=== PATIENT | female | born 1960 | race Caucasian/White ===

== ENCOUNTER → 2016-07-02 | Outpatient (CLI) | payer BC ==
[~2016-07-02] MED LIST: ADVIN50/60 INH; ALBUAER INH; PRLSR20 PO
--- NOTE | 2016-07-02 12:12 | DIAGNOSTIC IMAGING REPORT ---
CHEST 2 VIEWS ROUTINE [facility]IST[id number]PARISON: Chest 09/16/2015. FINDINGS: The lungs are clear. Cardiac silhouette is normal in size. No pleural effusions. No pneumothorax. IMPRESSION: No acute process. Electronically signed by: Matt Escobar M.D. 07/02/2016 12:10 PM Dictated Date/Time: 07/02/2016 12:08 PM
== END | disposition home or self-care (01) ==
LOC: C.RAD1850 11:44
PROVIDERS: ATTEND Internal Medicine
DX: Z00.00 Encounter for general adult medical examination without abnormal findings (principal)

== ENCOUNTER → 2018-01-30 | Outpatient (CLI) | payer BC ==
[2018-01-30 14:05] LABS: BASO % 0.2 %; BASO ABS # 0.02 K/uL (0-0.2); EOS % 2.1 %; EOS ABS # 0.17 K/uL (0-0.5); HEMATOCRIT 43.7 % (37-47); HEMOGLOBIN 14.5 g/dL (12.0-16.0); IG# 0.03 K/uL (0.00-0.02); LYMPH % 26.5 %; LYMPH ABS # 2.12 K/uL (1.2-3.4); MEAN CORPUSCULAR HEMOGLOBIN 30.9 pg (25-34); MEAN CORPUSCULAR HGB CONC 33.2 g/dl (32-36); MEAN PLATELET VOLUME 9.1 fL (7.4-10.4); MONO % 9.2 %; MONO ABS # 0.74 K/uL (0.11-0.59); NEUT % 61.6 %; NEUT ABS # 4.93 K/uL (1.4-6.5); PLATELET COUNT 365 K/uL (130-400); RED CELL DISTRIBUTION WIDTH CV 12.3 % (11.5-14.5); RED CELL DISTRIBUTION WIDTH SD 41.4 fL (36.4-46.3); WHITE BLOOD COUNT 8.01 K/uL (4.8-10.8)
[2018-01-30 14:33] LABS: BLOOD UREA NITROGEN 18 mg/dl (7-18); CALCIUM 9.7 mg/dl (8.5-10.1); CARBON DIOXIDE 27 mmol/L (21-32); CREATININE 0.61 mg/dl (0.60-1.20); GLUCOSE 80 mg/dl (70-99); POTASSIUM 3.7 mmol/L (3.5-5.1); SODIUM 134 mmol/L (136-145)
== END | disposition home or self-care (01) ==
LOC: C.LAB1850 12:09
PROVIDERS: ATTEND Physician Assistant
DX: R53.83 Other fatigue (principal)

== ENCOUNTER 2019-04-04 16:49 | Inpatient (IN) ==
[2019-04-04] MEDS ORDERED: ONDANSETRON INJ 2 MG/ML 2 ML VIAL IV STA (17:08)
[2019-04-04] MEDS: HYDROmorphone INJ 0.5 MG/0.5 ML SYR IV PRN ×2 (17:30→20:08)
[2019-04-04 17:35] LABS: Basophils # (auto) 0.04 K/uL (0-0.2); Basophils % (auto) 0.8 %; Eosinophils # (auto) 0.19 K/uL (0-0.5); Hematocrit (blood only) 41.5 % (37-47); Hemoglobin 13.6 g/dL (12.0-16.0); Immature Granulocytes # (auto) 0.02 K/uL (0.00-0.02); Immature Granulocytes % (auto) 0.4 %; Lymphocytes # (auto) 1.45 K/uL (1.2-3.4); Lymphocytes % (auto) 30.2 %; Mean Corpuscular Hemoglobin 30.6 pg (25-34); Mean Corpuscular Hgb Conc 32.8 g/dL (32-36); Mean Corpuscular Volume 93.3 fL (80-100); Mean Platelet Volume 9.5 fL (7.4-10.4); Monocytes # (auto) 0.54 K/uL (0.11-0.59); Monocytes % (auto) 11.3 %; Neutrophils # (auto) 2.56 K/uL (1.4-6.5); Neutrophils % (auto) 53.3 %; Platelet Count 262 K/uL (130-400); RDW Coefficient of Variation 13.6 % (11.5-14.5); RDW Standard Deviation 46.4 fL (36.4-46.3); Red Blood Count 4.45 M/uL (4.2-5.4)
[2019-04-04 18:01] LABS: Alanine Aminotransferase 346 U/L (12-78); Albumin Globulin Ratio 1.1 (0.9-2); Albumin Level 3.5 gm/dl (3.4-5.0); Alkaline Phosphatase 149 U/L (45-117); Aspartate Aminotransferase 156 U/L (15-37); BUN Creatinine Ratio 17.1 (10-20); Blood Urea Nitrogen 12 mg/dl (7-18); Carbon Dioxide 29 mmol/L (21-32); Chloride 102 mmol/L (98-107); Est GFR (Non-African American) 96.6; Globulin 3.2 gm/dl (2.5-4.0); Glucose 106 mg/dl (70-99); Lipase 152 U/L (73-393); Potassium 3.3 mmol/L (3.5-5.1); Sodium 137 mmol/L (136-145); Total Protein 6.7 gm/dl (6.4-8.2)
[2019-04-04] MEDS ORDERED: IOVERSOL 100ml IV PRN (18:08)
--- NOTE | 2019-04-04 18:23 | CT Scan Report ---
CT abd pelvis oral and IV con CLINICAL HISTORY: 58 years-old Female presenting with upper abd pain, elevated LFTs, quick prep. TECHNIQUE: Multidetector CT of the abdomen and pelvis was performed after the administration of oral and intravenous contrast. IV contrast: 94 mL of Optiray 320. One or more dose lowering techniques wer e used consistent with the principles of ALARA (as low as reasonably achievable), including automatic exposure control, mA or kV adjustment to individual patient size, and/or use of iterative reconstruc tion. COMPARISON: None. CT DOSE (mGy.cm): The estimated cumulative dose is 254.65 mGy.cm. FINDINGS: Mental [employer] Professional topogram: Unremarkable. Lung bases: Normal heart size. No pericardial or pleural effusion. Minimal dependent changes likely a telectasis. Liver: Normal morphology. Well-defined hypodense lesions likely hepatic cysts. Patent hepatic vascula ture. Biliary: No intrahepatic or extrahepatic biliary ductal dilatation. Normal gallbladder. Pancreas: Normal. Spleen: Normal. Adrenal glands: Normal. Kidneys and ureters: Normal. No hydronephrosis. Bladder: The configuration of the bladder suggests pelvic ligamentous laxity. Bladder otherwise olga l. Pelvic organs: Multiple degenerated fibroids as well as viable enhancing fibroids noted including a s ubmucosal Bible fibroid in the endometrial cavity. Ovaries normal. Bowel: Moderate stool burden throughout normal caliber colon, which is predominantly left-sided. The appendix is now well visualized. No bowel obstruction. Wall thickening of the gastric antrum and [place] pyloric region to a mild degree. No small bowel wall thickening is appreciated. Peritoneal cavity: Trace free fluid in the pelvis. No free intraperitoneal gas. Lymph nodes: No enlarged lymph nodes in the abdomen or pelvis. Vasculature: Aorta and IVC patent and normal in caliber. Abdominal wall: Normal. Musculoskeletal: Normal. IMPRESSION: 1. Possible wall thickening of the gastric antrum and periportal or region could represent gastritis . 2. No other evidence of acute intra-abdominal pathology allowing for nonvisualization of the appendi x. 3. Stool burden could suggest constipation. 4. Fibroid uterus including an enhancing submucosal fibroid. Electronically signed by: Shay Lombardi M.D. 04/04/2019 6:22 PM
[2019-04-04 19:02] LABS: Appearance Urine Clear (Clear); Blood Urine Negative (Negative); Color Urine Dark Yellow; Glucose Urine UA Negative (Negative); Ketones Urine Negative (Negative); Leukocyte Esterase Urine Negative (Negative); Nitrite Urine Negative (Negative); Protein Urine Negative (Negative); Specific Gravity Urine > 1.045 (1.000-1.030); Urobilinogen Urine Negative (Negative); pH Urine 7.5 (4.5-7.5)
[2019-04-04 19:05] LABS: Bilirubin Urine 2+ (Negative)
[2019-04-04 19:06] LABS: Ictotest Urine Positive (Negative)
[2019-04-04] MEDS ORDERED: FAMOTIDINE 20MG/5ML IV PUSH IV STA (20:20)
[2019-04-04 21:11] LABS: Hepatitis B Surface Antigen Neg (Neg)
[2019-04-04] MEDS ORDERED: POTASSIUM CHLORIDE 20 MEQ TABCR PO STA (21:14)
[2019-04-04 21:39] LABS: Hepatitis C IgG 13Yrs+Old_Rflx Neg (Neg)
--- NOTE | 2019-04-04 22:38 | History & Physical Report ---
Date of Service April 04, 2019 Assessment & Plan (1) Abdominal pain: (2) Transaminitis: Please refer to Dr. Beltran's addendum for assessment and plan. History of Present Illness Chief Complaint: Abdominal pain Primary Care Provider: Nabeel Gilmore MD 58-year-old female who presents to the ED with abdominal pain. Patient has been having ongoing GI issues for the past several months. She reports initially she had symptoms of bloating and gas. She also has had progressive weight loss. Over the summer, patient underwent EGD and colonoscopy that were unremarkable. 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 She was seen in the GI clinic today for complaints of constipation and light-colored stools. Patient was instructed to do a bowel cleanse with MiraLAX and Dulcolax. Labs were also obtained that demonstrated a transaminitis. Per outpatient GI note, it is suspected that this is from Xifaxan use. Patient reports that after she started the clients today, she developed left lower quadrant abdominal pain. She reports she has had minimal bowel movement since doing a cleanse. She has had nausea but denies any vomiting. No fevers or chills. Denies chest pain or shortness of breath. No lightheadedness, dizziness, diaphoresis, syncopal events. She denies urinary symptoms. Of note, patient has been seeing a clinical auditor to help her gain some weight. She was started on supplements about 1-1/2 months ago however stopped them about 2 weeks ago due to difficulty swallowing the pills. She is unsure of what all the supplements were in the list is at home. In the ED, labs demonstrate a transaminitis. CT ABD/pelvis is showing signs of gastritis and constipation. Patient is hemodynamically stable. She was given IV famotidine, IV Dilaudid, IV Zofran. Allergies Allergy/AdvReac Type Severity Reaction Status Date / Time levofloxacin [From Levaquin] Allergy Unknown Unknown Verified 04/04/19 18:07 Penicillins Allergy Unknown Unknown Verified 04/04/19 18:07 Home Medications Home Medications Medication Instructions Recorded Confirmed Type albuterol sulfate HFA 90 2 puffs INH .Q4-6HRS PRN 02/02/19 04/04/19 History mcg/actuation aerosol inhaler omeprazole 20 mg tablet,delayed 20 mg PO QAM 02/02/19 04/04/19 History release zafirlukast 20 mg tablet 20 mg PO Q12H #180 tab 03/13/19 04/04/19 Rx fluticasone propionate-salmeterol 2 puffs INH BID #36 gm 03/20/19 04/04/19 Rx 115 mcg-21 mcg/actuation HFA inhaler lactobacillus combination no.4 1 cell PO DAILY 04/04/19 04/04/19 History [Probiotic] rifaximin [Xifaxan] 550 mg PO TID 04/04/19 04/04/19 History Past Med/Surg History Medical History IBS (irritable bowel syndrome) (Chronic) Small intestinal bacterial overgrowth (Chronic) GERD (gastroesophageal reflux disease) (Chronic) Asthma, moderate persistent (Chronic) Surgical History History of tonsillectomy (Chronic) Family History Father Colorectal cancer Social History Preferred Language: Welsh Communication Ability: Effective Manager Secondary Required: No Beliefs That Will Affect Care: None Current Living Situation: Spouse Other Information That Helps Us Care for You: No Feels Safe at Home: Yes Safety Concerns: Feels Safe At This Time Smoking Status: Never smoker Hx Alcohol Use: No Hx Substance Use: No Review of Systems Review of Systems: ROS per HPI, all other systems reviewed and negative Physical Exam Constitutional: + thin; no acute distress Vitals as noted Eyes: + scleral abnormality (icteric sclerae) and PERRL; no conjunctival abnormality ENMT: external ear and nose normal, oropharynx normal Respiratory: normal respiratory effort, lungs clear to auscultation Cardiovascular: Rate/Rhythm: regular rate and regular rhythm Vessels: normal peripheral pulses Extremities: no edema Gastrointestinal (Abdomen): Inspection/Auscultation: normal bowel sounds P ercussion/Palpation: + abdomen tender (Left lower quadrant) and abdomen soft; no hepatosplenomegaly Musculoskeletal: no cyanosis or clubbing, extremities motor strength 5/5 Skin: no rashes, warm and dry Neurologic: PERRL, EOMI, accommodation nl, no face palsy, no dysarthria Psychiatric: A+Ox3, euthymic affect Results & Data Vital Signs (Past 12 Hours) Vital Signs Temp Pulse Pulse Resp BP BP Pulse Ox 04/04/19 20:01 77 15 04/04/19 20:00 75 15 139/80 95 04/04/19 19:31 63 14 04/04/19 19:30 65 18 126/75 04/04/19 19:00 63 15 125/76 04/04/19 18:52 58 L 14 123/78 04/04/19 18:31 69 17 97 04/04/19 18:30 66 18 132/74 98 04/04/19 18:17 63 19 136/73 99 04/04/19 18:16 68 27 H 04/04/19 17:37 65 22 131/71 95 04/04/19 17:35 131/71 04/04/19 17:08 95 04/04/19 16:55 36.6 C 64 16 105/70 99 Laboratory Results Short CBC 04/04/19 Range/Units 17:27 WBC 4.80 (4.8-10.8) K/uL Hgb 13.6 (12.0-16.0) g/dL Hct 41.5 (37-47) % Plt Count 262 (130-400) K/uL BMP 04/04/19 17:27 Sodium 137 Potassium 3.3 L Chloride 102 Carbon Dioxide 29 BUN 12 Creatinine 0.69 Glucose 106 H Calcium 9.0 Liver Function 04/04/19 Range/Units 17:27 Total Bilirubin 5.0 H (0.2-1) mg/dl AST 156 H (15-37) U/L ALT 346 H (12-78) U/L Alkaline Phosphatase 149 H (45-117) U/L Albumin 3.5 (3.4-5.0) gm/dl Urine 04/04/19 Range/Units 13:55 Urine Color Dark Yellow Urine Appearance Clear (Clear) Urine pH 7.5 (4.5-7.5) Ur Specific [place] > 1.045 H (1.000-1.030) Urine Protein Negative (Negative) Urine Glucose (UA) Negative (Negative) Diagnostic Findings CT ABD/PELVIS IMPRESSION: 1. Possible wall thickening of the gastric antrum and periportal or region could represent gastritis. 2. No other evidence of acute intra-abdominal pathology allowing for nonvisualization of the appendix. 3. Stool burden could suggest constipation. 4. Fibroid uterus including an enhancing submucosal fibroid. Supervising Physician Co-Signing Physician Notes IM ATTENDING : Patient seen and examined. History obtained from patient and records. Preceding documentation by SAMMIE Mcmahan reviewed. FINAL ASSESSMENT AND PLAN as follows : Abdominal discomfort, abnormal LFTs Hypokalemia secondary to bowel cleansing regimen bronchial asthma, stable GMF Follow LFTs GI consult RE abnormal LFTs (ER provider already in touch with Dr. Garcia who recommends MRCP). Replace potassium DVT prophylaxis. SCDs Full code
--- NOTE | 2019-04-04 23:08 | Emergency Department Note ---
Entered by Gavi Gudino acting as a scribe for Neil Reaves MD ED Provider Note CHIEF COMPLAINT: Abdominal pain HISTORY OF PRESENT ILLNESS: The patient is a 58 year old female presenting to the Emergency Department complaining of constant abdominal pain starting 1 week ago. The patient reports that she has lower abdominal pain. She states that this pain radiates up to her chest. She currently rates this pain 8/10. She explains that she is itchy all over. She notes that she began to experience jesus-whitish colored stool starting earlier today. She adds that she has been experiencing stomach issues since October 2018. The patient reports that her PCP believes that she may have SIBO so she has been taking Xifaxan for the past 1.5 weeks. She states that she thinks Zifaxan has worsened her stomach problems. She explains that since October 2018 she has had a colonoscopy, endoscopy and CT scan all of which have been negative. She notes that earlier today she had blood work that showed her liver enzymes were elevated which is why she came into the ED today. She adds that she has been taking Miralax for her abdominal problems that has not helped. The patient denies alcohol use. Pt denies LOC, headache, fevers, chills, diaphoresis, visual changes, neck pain, urinary symptoms, numbness, weakness, lymphadenopathy or other complaints. REVIEW OF SYSTEMS: See HPI for pertinent positives and negatives. A total of ten systems were reviewed and were otherwise negative. PMHx/PSHx: Colonoscopy, Endoscopy. SOCIAL HISTORY: Patient lives at home. Never smoker. PHYSICAL EXAM: GENERAL: Awake, alert, uncomfortable-appearing, in moderate distress HENT: Normocephalic, atraumatic. Oropharynx unremarkable. EYES: PERRL. Normal conjunctiva. Sclera mildly icteric. NECK: Inspection normal. Non-tender. Supple. No nuchal rigidity. FROM. No masses. RESPIRATORY: Clear to auscultation. No wheezes. No rales. Normal respiratory effort. CARDIAC: Normal rate. Normal rhythm. No murmurs. No rubs. Extremities warm and well perfused. Pulses equal. No JVD. GI: LUQ tenderness. Soft, non-distended. No rebound or guarding. No masses. RECTAL: Deferred. MUSCULOSKELETAL: Atraumatic. Chest examination reveals no tenderness. The back is symmetrical on inspection without obvious abnormality. There is no CVA tenderness to palpation. No joint edema. LOWER EXTREMITIES: Calves are equal size bilaterally and non-tender. No edema. No discoloration. NEURO: Normal sensorium. No sensory or motor deficits noted. SKIN: Mild jaundice. No rash. EMERGENCY DEPARTMENT COURSE: 1704: Past medical records reviewed. The patient was evaluated in room B12B, and a complete history and physical examination were performed. 1999: I reevaluated the patient at this time who reports that she is in more pain. I will order her more pain medication. 2002: I discussed the patients case with Dr. Mead [facility]. He recommends to admit the patient, do an MRCP, GI consult and hepatitis panel. 2019: I reevaluated the patient at this time. 2049: I discussed the patient's case with Dr. Ruby Low hospitalist. He will evaluate her for further management. MEDICAL DECISION MAKING: Triage Nursing notes reviewed and agree them. Additional history obtained from family. The patient's history was concerning for abdominal pain. Differential diagnosis: Etiologies such as appendicitis, diverticulitis, PUD, biliary pathology, UTI, pancreatitis, obstruction, mesenteric ischemia, aortic pathology, infections, inflammatory bowel disease, renal colic, as well as others were entertained. Physical examination findings: As above. ER treatment provided: IV Dilaudid x2 IV Zofran IV Pepcid On reassessment the patient felt better. Diagnostics interpreted by me: ECG did not reveal any evidence of ischemia. The labs revealed an unremarkable CBC. Minimal hypokalemia and chemistry panel. The patient has an elevated AST, ALT, alkaline phosphatase, and bilirubin. Lipase is normal. Imaging studies: CT scan of the abdomen and pelvis revealed a mild gastritis. No obstruction or perforation. No abnormal liver/gallbladder/pancreas imaging. Consultation: A consultation was placed with the hospital medicine director on-call, Dr. Mead. The case was discussed and reviewed. He recommended a hepatitis screening as well as an MRCP. Given the patient's discomfort and requiring IV pain control, a consultation was placed with the hospitalist service. The case was discussed and diagnostics were reviewed. The patient was evaluated in the ER for further treatment. IMPRESSION: LUQ abdominal pain, Gastritis, Elevated LFTs, Jaundice PLAN: Being Evaluated by Hospitalist The scribe's documentation has been prepared under my direction and personally reviewed by me in its entirety. I confirm that the note above accurately reflects all work, treatment, procedures, and medical decision making performed by me. Impression & Plan Abdominal pain, LUQ, Gastritis, Elevated LFTs, Jaundice Past Med/Surg History Medical History IBS (irritable bowel syndrome) (Chronic) Small intestinal bacterial overgrowth (Chronic) GERD (gastroesophageal reflux disease) (Chronic) Asthma, moderate persistent (Chronic) Surgical History History of tonsillectomy (Chronic) Family History Father Colorectal cancer Social History Preferred Language: [place] Citizen Feels Safe at Home: Yes Smoking Status: Never smoker Hx Alcohol Use: No Results & Data Vital Signs Vital Signs - 24 hr 04/04/19 16:55 04/04/19 17:08 04/04/19 17:35 Temperature 36.6 C Temperature Source Oral Sepsis Recent Fever Within 48 Hours No Sepsis New/Unexplained Change in Mental Status No Sepsis Action Taken by Nursing No Action Required Pulse Rate 64 Pulse Rate [Apical] Pulse Rate from SpO2 Sensor Respiratory Rate 16 Respiratory Effort / Characteristics Non-Labored Spontaneous Respiratory Depth Normal Blood Pressure 105/70 131/71 Blood Pressure [Right Arm] Blood Pressure Mean 81 91 Blood Pressure Mean [Right Arm] Blood Pressure Position Sitting Pulse Oximetry 99 95 Oxygen Delivery Method Room Air Room Air 04/04/19 17:37 04/04/19 18:16 04/04/19 18:17 Temperature Temperature Source Sepsis Recent Fever Within 48 Hours Sepsis New/Unexplained Change in Mental Status Sepsis Action Taken by Nursing Pulse Rate 68 63 Pulse Rate [Apical] 65 Pulse Rate from SpO2 Sensor 63 Respiratory Rate 22 27 H 19 Respiratory Effort / Characteristics Respiratory Depth Blood Pressure 136/73 Blood Pressure [Right Arm] 131/71 Blood Pressure Mean 94 Blood Pressure Mean [Right Arm] 91 Blood Pressure Position Pulse Oximetry 95 99 Oxygen Delivery Method Room Air 04/04/19 18:30 04/04/19 18:31 04/04/19 18:52 Temperature Temperature Source Sepsis Recent Fever Within 48 Hours Sepsis New/Unexplained Change in Mental Status Sepsis Action Taken by Nursing Pulse Rate 66 69 58 L Pulse Rate [Apical] Pulse Rate from SpO2 Sensor 65 68 Respiratory Rate 18 17 14 Respiratory Effort / Characteristics Respiratory Depth Blood Pressure 132/74 123/78 Blood Pressure [Right Arm] Blood Pressure Mean 93 93 Blood Pressure Mean [Right Arm] Blood Pressure Position Pulse Oximetry 98 97 Oxygen Delivery Method 04/04/19 19:00 04/04/19 19:30 04/04/19 19:31 Temperature Temperature Source Sepsis Recent Fever Within 48 Hours Sepsis New/Unexplained Change in Mental Status Sepsis Action Taken by Nursing Pulse Rate 63 65 63 Pulse Rate [Apical] Pulse Rate from SpO2 Sensor Respiratory Rate 15 18 14 Respiratory Effort / Characteristics Respiratory Depth Blood Pressure 125/76 126/75 Blood Pressure [Right Arm] Blood Pressure Mean 92 92 Blood Pressure Mean [Right Arm] Blood Pressure Position Pulse Oximetry Oxygen Delivery Method 04/04/19 20:00 04/04/19 20:01 04/04/19 20:30 Temperature Temperature Source Sepsis Recent Fever Within 48 Hours Sepsis New/Unexplained Change in Mental Status Sepsis Action Taken by Nursing Pulse Rate 75 77 71 Pulse Rate [Apical] Pulse Rate from SpO2 Sensor Respiratory Rate 15 15 17 Respiratory Effort / Characteristics Respiratory Depth Blood Pressure 139/80 141/76 H Blood Pressure [Right Arm] Blood Pressure Mean 99 97 Blood Pressure Mean [Right Arm] Blood Pressure Position Pulse Oximetry 95 Oxygen Delivery Method Room Air 04/04/19 21:00 04/04/19 21:30 04/04/19 22:03 Temperature Temperature Source Sepsis Recent Fever Within 48 Hours Sepsis New/Unexplained Change in Mental Status Sepsis Action Taken by Nursing Pulse Rate 65 64 63 Pulse Rate [Apical] Pulse Rate from SpO2 Sensor Respiratory Rate 14 13 15 Respiratory Effort / Characteristics Respiratory Depth Blood Pressure 140/82 150/85 H 137/71 Blood Pressure [Right Arm] Blood Pressure Mean 101 106 93 Blood Pressure Mean [Right Arm] Blood Pressure Position Pulse Oximetry Oxygen Delivery Method 04/04/19 22:04 04/04/19 22:30 Temperature Temperature Source Sepsis Recent Fever Within 48 Hours Sepsis New/Unexplained Change in Mental Status Sepsis Action Taken by Nursing Pulse Rate 61 61 Pulse Rate [Apical] Pulse Rate from SpO2 Sensor Respiratory Rate 17 17 Respiratory Effort / Characteristics Respiratory Depth Blood Pressure 134/77 Blood Pressure [Right Arm] Blood Pressure Mean 96 Blood Pressure Mean [Right Arm] Blood Pressure Position Pulse Oximetry 95 Oxygen Delivery Method Room Air Home Medications Current Medication List: was personally reviewed by wa Laboratory Data Attestation: I reviewed the patient's lab results. Result diagrams: 04/04/19 17:27 04/04/19 17:27 Lab Results 04/04/19 04/04/19 04/04/19 Range/Units 13:55 17:27 17:27 WBC 4.80 (4.8-10.8) K/uL RBC 4.45 (4.2-5.4) M/uL Hgb 13.6 (12.0-16.0) g/dL Hct 41.5 (37-47) % MCV 93.3 (80-100) fL MCH 30.6 (25-34) pg MCHC 32.8 (32-36) g/dL RDW Std Deviation 46.4 H (36.4-46.3) fL RDW Coeff of Ayan 13.6 (11.5-14.5) % Plt Count 262 (130-400) K/uL MPV 9.5 (7.4-10.4) fL Immature Gran % (Auto) 0.4 % Neut % (Auto) 53.3 % Lymph % (Auto) 30.2 % Hood % (Auto) 11.3 % Eos % (Auto) 4.0 % Baso % (Auto) 0.8 % Immature Gran # (Auto) 0.02 (0.00-0.02) K/uL Neut # (Auto) 2.56 (1.4-6.5) K/uL Lymph # (Auto) 1.45 (1.2-3.4) K/uL Hood # (Auto) 0.54 (0.11-0.59) K/uL Eos # (Auto) 0.19 (0-0.5) K/uL Baso # (Auto) 0.04 (0-0.2) K/uL Sodium 137 (136-145) mmol/L Potassium 3.3 L (3.5-5.1) mmol/L Chloride 102 (98-107) mmol/L Carbon Dioxide 29 (21-32) mmol/L Anion Gap 6.0 (3-11) BUN 12 (7-18) mg/dl Creatinine 0.69 (0.6-1.2) mg/dl Est Cr Clr Drug Dosing Not Reportable Est GFR ( Amer) 112.0 Est GFR (Non-Af Amer) 96.6 BUN/Creatinine Ratio 17.1 (10-20) Glucose 106 H (70-99) mg/dl Calcium 9.0 (8.5-10.1) mg/dl Magnesium (1.8-2.4) mg/dl Total Bilirubin 5.0 H (0.2-1) mg/dl AST 156 H (15-37) U/L ALT 346 H (12-78) U/L Alkaline Phosphatase 149 H (45-117) U/L Total Protein 6.7 (6.4-8.2) gm/dl Albumin 3.5 (3.4-5.0) gm/dl Globulin 3.2 (2.5-4.0) gm/dl Albumin/Globulin Ratio 1.1 (0.9-2) Lipase 152 (73-393) U/L Urine Color Dark Yellow Urine Appearance Clear (Clear) Urine pH 7.5 (4.5-7.5) Ur Specific Corbett > 1.045 H (1.000-1.030) Urine Protein Negative (Negative) Urine Glucose (UA) Negative (Negative) Urine Ketones Negative (Negative) Urine Blood Negative (Negative) Urine Nitrite Negative (Negative) Urine Bilirubin 2+ H (Negative) Urine Urobilinogen Negative (Negative) Ur Leukocyte Esterase Negative (Negative) Hep Bs Antigen (Neg) Hepatitis C Antibody (Neg) 04/04/19 04/04/19 Range/Units 17:27 17:27 WBC (4.8-10.8) K/uL RBC (4.2-5.4) M/uL Hgb (12.0-16.0) g/dL Hct (37-47) % MCV (80-100) fL MCH (25-34) pg MCHC (32-36) g/dL RDW Std Deviation (36.4-46.3) fL RDW Coeff of Ayan (11.5-14.5) % Plt Count (130-400) K/uL MPV (7.4-10.4) fL Immature Gran % (Auto) % Neut % (Auto) % Lymph % (Auto) % Hood % (Auto) % Eos % (Auto) % Baso % (Auto) % Immature Gran # (Auto) (0.00-0.02) K/uL Neut # (Auto) (1.4-6.5) K/uL Lymph # (Auto) (1.2-3.4) K/uL Hood # (Auto) (0.11-0.59) K/uL Eos # (Auto) (0-0.5) K/uL Baso # (Auto) (0-0.2) K/uL Sodium (136-145) mmol/L Potassium (3.5-5.1) mmol/L Chloride (98-107) mmol/L Carbon Dioxide (21-32) mmol/L Anion Gap (3-11) BUN (7-18) mg/dl Creatinine (0.6-1.2) mg/dl Est Cr Clr Drug Dosing Est GFR ( Amer) Est GFR (Non-Af Amer) BUN/Creatinine Ratio (10-20) Glucose (70-99) mg/dl Calcium (8.5-10.1) mg/dl Magnesium 2.1 (1.8-2.4) mg/dl Total Bilirubin (0.2-1) mg/dl AST (15-37) U/L ALT (12-78) U/L Alkaline Phosphatase (45-117) U/L Total Protein (6.4-8.2) gm/dl Albumin (3.4-5.0) gm/dl Globulin (2.5-4.0) gm/dl Albumin/Globulin Ratio (0.9-2) Lipase (73-393) U/L Urine Color Urine Appearance (Clear) Urine pH (4.5-7.5) Ur Specific Corbett (1.000-1.030) Urine Protein (Negative) Urine Glucose (UA) (Negative) Urine Ketones (Negative) Urine Blood (Negative) Urine Nitrite (Negative) Urine Bilirubin (Negative) Urine Urobilinogen (Negative) Ur Leukocyte Esterase (Negative) Hep Bs Antigen Neg (Neg) Hepatitis C Antibody Neg (Neg) Administered Medications Hydromorphone HCl (Dilaudid) 0.5 mg IV Q15M PRN PRN Reason: Pain Stop: 04/18/19 17:07 Last Admin: 04/04/19 20:08 Dose: 0.5 mg Documented by: [id number] Admin: 04/04/19 17:30 Dose: 0.5 mg Documented by: [id number] Ioversol (Optiray 320 100ml) 94 ml IV ONCE PRN PRN Reason: Interaction Checking Stop: 04/08/19 18:07 Last Admin: 04/04/19 18:09 Dose: 94 ml Documented by: [id number] Discontinued Medications Famotidine (Pepcid 20mg Iv Push) 20 mg IV ONE STA Stop: 04/04/19 20:21 Last Admin: 04/04/19 20:24 Dose: 20 mg Documented by: [id number] Ondansetron HCl (Zofran) 4 mg IV NOW STA Stop: 04/04/19 17:09 Last Admin: 04/04/19 17:30 Dose: 4 mg Documented by: [id number] Potassium Chloride (Klor-Con M20) 40 meq PO NOW STA Stop: 04/04/19 21:15 Last Admin: 04/04/19 21:44 Dose: 40 meq Documented by: [id number] Imaging Data Radiologist's Impression: Radiology results as stated below per my review and the radiologist's interpretation: CT abd pelvis oral and IV con CLINICAL HISTORY: 58 years-old Female presenting with upper abd pain, elevated LFTs, quick prep. TECHNIQUE: Multidetector CT of the abdomen and pelvis was performed after the administration of oral and intravenous contrast. IV contrast: 94 mL of Optiray 320. One or more dose lowering techniques were used consistent with the principles of ALARA (as low as reasonably achievable), including automatic exposure control, mA or kV adjustment to individual patient size, and/or use of iterative reconstruction. COMPARISON: None. CT DOSE (mGy.cm): The estimated cumulative dose is 254.65 mGy.cm. FINDINGS: [employer] Specialist topogram: Unremarkable. Lung bases: Normal heart size. No pericardial or pleural effusion. Minimal dependent changes likely atelectasis. Liver: Normal morphology. Well-defined hypodense lesions likely hepatic cysts. Patent hepatic vasculature. Biliary: No intrahepatic or extrahepatic biliary ductal dilatation. Normal gallbladder. Pancreas: Normal. Spleen: Normal. Adrenal glands: Normal. Kidneys and ureters: Normal. No hydronephrosis. Bladder: The configuration of the bladder suggests pelvic ligamentous laxity. Bladder otherwise normal. Pelvic organs: Multiple degenerated fibroids as well as viable enhancing fibroids noted including a submucosal Bible fibroid in the endometrial cavity. Ovaries normal. Bowel: Moderate stool burden throughout normal caliber colon, which is predominantly left-sided. The appendix is now well visualized. No bowel obstruction. Wall thickening of the gastric antrum and peripyloric region to a mild degree. No small bowel wall thickening is appreciated. Peritoneal cavity: Trace free fluid in the pelvis. No free intraperitoneal gas. Lymph nodes: No enlarged lymph nodes in the abdomen or pelvis. Vasculature: Aorta and IVC patent and normal in caliber. Abdominal wall: Normal. Musculoskeletal: Normal. IMPRESSION: 1. Possible wall thickening of the gastric antrum and periportal or region could represent gastritis. 2. No other evidence of acute intra-abdominal pathology allowing for nonvisualization of the appendix. 3. Stool burden could suggest constipation. 4. Fibroid uterus including an enhancing submucosal fibroid. Electronically signed by: Shay Lombardi M.D. 04/04/2019 6:22 PM ECG Data Attestation: I personally reviewed and interpreted this ECG as follows: Indication: abdominal pain Rate (beats per minute): 58 Rhythm: sinus bradycardia Findings: + other (Normal QRS.) and + 1st degree AV block; no PAC, no PVC, no ST depression and no ST elevation Blood Pressure Blood Pressure Findings: Elevated blood pressure Blood Pressure Disposition: further management by hospitalist Discharge Plan Visit Data Chief Complaint: Abdominal Pain Stated Complaint: STOMACH PAIN ED Provider: Neil Reaves Discharge Problem: Abdominal pain, LUQ, Gastritis, Elevated LFTs, Jaundice Patient Disposition: Being Evaluated by Hospitalist Forms Stand Alone Forms: Call Back Authorization, My [facility] Prescriptions Prescriptions: No Action zafirlukast 20 mg tablet 20 mg PO Q12H Qty: 180 RF: 3 Advair HFA 115-21 mcg/actuation HFA aerosol inhaler 2 puffs INH BID Qty: 36 RF: 3 omeprazole 20 mg tablet,delayed release (DR/EC) 20 mg PO QAM RF: 0 albuterol sulfate [Ventolin HFA] 90 mcg/actuation HFA aerosol inhaler 2 puffs INH .Q4-6HRS PRN (Reason: Cough or Wheezing) RF: 0 Xifaxan 550 mg tablet 550 mg PO TID RF: 0 Probiotic 3 billion cell Capsule 1 cell PO DAILY RF: 0 Referrals Referrals: Nabeel Gilmore MD [Primary Care Provider] - The scribe's documentation has been prepared under my direction and personally reviewed by me in its entirety. I confirm that the note above accurately reflects all work, treatment, procedures, and medical decision making performed by me.
[2019-04-04] MEDS ORDERED: ACETAMINOPHEN 325 MG TAB PO PRN (23:30)
[2019-04-04] MEDS ORDERED: LORazepam 0.25 MG/0.5 ML VIAL IV PRN (23:30)
[2019-04-04] MEDS ORDERED: PROMETHAZINE HCL 12.5 MG in SODIUM CHLORIDE 0.9% 50 ML IV PRN (23:30)
[2019-04-04] MEDS ORDERED: KETOROLAC 30 MG/ML VIAL IV PRN (23:30)
[2019-04-04] MEDS ORDERED: TRAMADOL HCL 50 MG TABLET PO PRN (23:30)
[2019-04-04] MEDS: LACTATED RINGER'S 1,000 ML IV SCH (23:49)
[2019-04-05] MEDS: FLUTICASONE/SALMETEROL 250/50 (ADVAIR) 14 PUFF/1 INHALER INH SCH ×3 (00:42→19:48)
[2019-04-05] MEDS ORDERED: POLYETHYLENE (MIRALAX) 17 GM PACK PO PRN (05:21)
[2019-04-05] MEDS: DOCUSATE SODIUM/SENNA 50/8.6MG TAB PO SCH ×2 (05:50→08:00)
[2019-04-05] MEDS: PANTOprazole 40 MG TAB PO SCH (07:50)
[2019-04-05] MEDS: LACTOBACILLUS ACIDOPHILUS (FLORANEX) TAB PO SCH (07:50)
--- NOTE | 2019-04-05 07:51 | Magnetic Resonance Report ---
MRCP CLINICAL HISTORY: Generalized abdominal pain. COMPARISON STUDY: Abdominal CT dated 04/04/2019. TECHNIQUE: Abdominal MRCP is performed utilizing various T2-weighted sequences in the axial and coron al planes. IV contrast was not administered for this examination. 3-D reformats are created and asses sed. FINDINGS: The gallbladder is normal in appearance. No gallstones are identified. There is no intra or extrahepa tic biliary ductal dilatation. The common bile duct is normal in caliber and measures up to 3 mm in d iameter. There are no filling defects to suggest choledocholithiasis. The pancreatic duct is normal i n caliber. Scattered hepatic cysts measure up to 1 cm. The unenhanced liver is otherwise grossly unremarkable. T he unenhanced spleen, pancreas, adrenal glands, and kidneys are grossly normal. There is no bowel obs truction. The abdominal aorta is normal in caliber. No abdominal ascites is identified. There is no e vidence of adenopathy. No pleural effusion is seen. The bony structures are intact as visualized. IMPRESSION: Normal MRCP. Electronically signed by: Sixto Munson M.D. 04/05/2019 7:50 AM
[2019-04-05 08:27] LABS: Albumin Globulin Ratio 1.1 (0.9-2); Albumin Level 3.4 gm/dl (3.4-5.0); BUN Creatinine Ratio 16.9 (10-20); Bilirubin,Total 4.8 mg/dl (0.2-1); Calcium 9.3 mg/dl (8.5-10.1); Creatinine Clr Calc Pharmacy 82.3 ml/min; Est GFR (African American) 122.2; Est GFR (Non-African American) 105.4; Total Protein 6.4 gm/dl (6.4-8.2)
--- NOTE | 2019-04-05 09:02 | Gastrointestinal Consultation ---
Date of Consultation April 05, 2019 Assessment & Plan (1) Transaminitis: 58 year old female undergoing oupatient GI work up for abdominal pain, GERD, change in bowel habits and new weight loss of 12 lbs s/p chest XR, transvaginal US, contrast enhanced CT which was unremarkble. She had EGD/Colon w/ Dr. 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 She has had persistent migratory abdominal pain, noted to be jaundiced in clinical yesterday which prompted ED evaluation given uncontrolled abdominal pain. Only new medication is Xifaxan, no ETOH use, no tylenol use. She does use numerous unspecified supplements which she will have her bring in so we can review. DDX discussed to include viral etiology, medication induced, biliary source although negative MR - LFTs, PLT, PT/INR daily - MRCP negative - Consider EUS pending clinical course - Acute hep panel sent - MAYELIN, AMA, ASMA added - Consider trial of Bentyl - Continue Omeprazole - Can use Pepcid 10 mg daily in addition PRN - Start a bowel regimen - Colace 100 mg twice daily - Miralax 1 capful twice daily - Current medication list reviewed - Zafirlukast: The pattern of liver enzyme elevation is usually hepatocellular and resembles acute viral hepatitis The onset of symptoms of liver injury is typically within 2 to 6 months of starting therapy, but cases with longer latency periods have been reported (8-13 months). - Xifaxan: there is little evidence that rifaximin when given orally causes liver injury, unlikely cause of clinically apparent liver injury but agree w/ holding medication as pt has not benefited from trial Thank you for allowing us to participate in the care of this patient. Please call with any acute changes, questions or concerns. Please see addendum below with additional recommendation from my supervising physician. Present on Admission?: Yes Supervising Physician Co-Signing Physician Notes I have seen and examined the patient and discussed the management with SAMMIE Fitzgerald. 58 yo fm for which GI is being consulted for abdominal pain and elevated lft's. Admitted overnite- negative abd mary and MRCP. Afebrile. Lft's reviewed Clinical history significant for herbal supplements but no other new medications other than Xifaxan recently. Agree with further plan of care as in Dea's assessment and plan. History of Present Illness Reason for Consultation: elevated LFTs, abd pain, weight loss Requesting Physician: Chris Attending Physician: Kassi Perez MD History of Present Illness 58 year old female with history of asthma, GERD, fibroids, basal cell CA who presents to the ED for evaluation of abdominal pain, abnormal labs - GI asked to evaluate for elevated LFTs. Pt was seen and evaluated, chart reviewed. Pt notes chronic UGI symptoms consistent w/ heartburn on PPI x years. 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 Random colon biopsies and microbiology was negative. She was started on a low FODMAP diet. She was trialing a bowel regimen and Xifaxan for suspected IBS. She notes overall symptoms persisted and unchanged. She endorses chronic abdominal pain. Migratory. Typically upper abdomen. Associated w/ full feeling, decreased appetite, early satiety and heartburn. She does have chronic nausea. No vomiting. No dysphagia. Persistent constipation. Hard to pass, formed stools. No black or bloody stools. No fever, chills, CP, SOB. Has lost about 12-14 lbs since onset of symptoms. New meds: xifaxan Tylenol: none ETOH: none Supplements: many, names unknown. will bring a list TB 0.3 --> 4.9 --> 5 AST 20 --> 174 --> 156 ALT 19 --> 353 --> 2445 ALKP 53 --> 144 --> 149 Lipase 43 --> 152 MRCP: The gallbladder is normal in appearance. No gallstones are identified. There is no intra or extrahepatic biliary ductal dilatation. The common bile duct is normal in caliber and measures up to 3 mm in diameter. There are no filling defects to suggest choledocholithiasis. The pancreatic duct is normal in caliber. Scattered hepatic cysts measure up to 1 cm. The unenhanced liver is otherwise grossly unremarkable. The unenhanced spleen, pancreas, adrenal glands, and kidneys are grossly normal. CT ABD/Pelvis: Possible wall thickening of the gastric antrum and periportal or region could represent gastritis. No other evidence of acute intra-abdominal pathology allowing for nonvisualization of the appendix. Stool burden could suggest constipation. Fibroid uterus including an enhancing submucosal fibroid. Chest XR: No acute process of the chest Tranvaginal US: Fibroid uterus. CT ABD/Pelvis: No acute abnormality identified in the abdomen or pelvis. No bowel obstruction. Lobular structure centrally in the pelvis containing multifocal rounded hypodense foci, suggesting a fibroid uterus, as above. Consider further evaluation with pelvic ultrasound. Colonoscopy: Normal mucosa in the entire examined colon to the terminalileum. Biopsied. Fluid aspiration performed EGD: Normal upper third of esophagus, middle third of esophagus and lower third of esophagus. Z-line slightly irregular, 39 cm from the incisors. Small sliding hiatal hernia.Multiple gastric polyps. Normal mucosa was found in the entire stomach. Normal examined duodenum. Squamo-columnar junction mucosa with pancreatic acinar metaplasia, negative for intestinal metaplasia and dysplasia Allergies Allergy/AdvReac Type Severity Reaction Status Date / Time levofloxacin [From Levaquin] Allergy Unknown Unknown Verified 04/04/19 18:07 Penicillins Allergy Unknown Unknown Verified 04/04/19 18:07 Home Medications Home Medications Medication Instructions Recorded Confirmed Type albuterol sulfate HFA 90 2 puffs INH .Q4-6HRS PRN 02/02/19 04/04/19 History mcg/actuation aerosol inhaler omeprazole 20 mg tablet,delayed 20 mg PO QAM 02/02/19 04/04/19 History release zafirlukast 20 mg tablet 20 mg PO Q12H #180 tab 03/13/19 04/04/19 Rx fluticasone propionate-salmeterol 2 puffs INH BID #36 gm 03/20/19 04/04/19 Rx 115 mcg-21 mcg/actuation HFA inhaler lactobacillus combination no.4 1 cell PO DAILY 04/04/19 04/04/19 History [Probiotic] rifaximin [Xifaxan] 550 mg PO TID 04/04/19 04/04/19 History Patient History Medical History IBS (irritable bowel syndrome) (Chronic) Small intestinal bacterial overgrowth (Chronic) GERD (gastroesophageal reflux disease) (Chronic) Asthma, moderate persistent (Chronic) Surgical History History of tonsillectomy (Chronic) Family History Father Colorectal cancer Social History Preferred Language: Irish Communication Ability: Effective 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: No Beliefs That Will Affect Care: None Current Living Situation: Spouse Other Information That Helps Us Care for You: No Feels Safe at Home: Yes Safety Concerns: Feels Safe At This Time Smoking Status: Never smoker Hx Alcohol Use: No Hx Substance Use: No Review of Systems Constitutional: + fatigue and + anorexia; no fever and no chills Respiratory: no cough, no dyspnea and no pain on inspiration Cardiovascular: no chest pain, no dyspnea and no dyspnea on exertion Gastrointestinal: + abdominal pain, + bloating, + early satiety, + heartburn, + nausea and + constipation; no belching, no vomiting, no coffee ground emesis, no hematemesis, no dysphagia, no cramping, no change in bowel habits, no change in stools, no diarrhea/loose stools, no fecal incontinence, no constant urge to pass stools, no blood in stools and no melena Physical Exam Constitutional: WD/WN, vitals as above + thin; no acute distress and not ill appearing Neck: trachea midline Respiratory: normal respiratory effort, lungs clear to auscultation Cardiovascular: RRR, no murmur, no edema Gastrointestinal (Abdomen): Inspection/Auscultation: abdomen normal to inspection and normal bowel sounds; abdomen not distended Percussion/Palpation: + abdomen tender (generalized) and abdomen soft; no guarding, abdomen not rigid and no abdominal mass Skin: + jaundice; no rashes Results & Data Vital Signs (Past 12 Hours) Vital Signs Temp Pulse Pulse Resp BP BP BP 04/05/19 07:19 36.8 C 63 16 111/70 04/04/19 23:45 36.8 C 76 16 131/73 04/04/19 23:09 67 18 126/76 04/04/19 22:30 61 17 134/77 04/04/19 22:04 61 17 04/04/19 22:03 63 15 137/71 04/04/19 21:30 64 13 150/85 H Pulse Ox 04/05/19 07:19 97 04/04/19 23:45 95 04/04/19 23:09 97 04/04/19 22:30 95 04/04/19 22:04 04/04/19 22:03 04/04/19 21:30 Laboratory Results 04/05/19 04/04/19 04/04/19 Range/Units 06:47 17:27 17:27 WBC (4.8-10.8) K/uL RBC (4.2-5.4) M/uL Hgb (12.0-16.0) g/dL Hct (37-47) % MCV (80-100) fL MCH (25-34) pg MCHC (32-36) g/dL RDW Std Deviation (36.4-46.3) fL RDW Coeff of Ayan (11.5-14.5) % Plt Count (130-400) K/uL MPV (7.4-10.4) fL Immature Gran % (Auto) % Neut % (Auto) % Lymph % (Auto) % [place] % (Auto) % Eos % (Auto) % Baso % (Auto) % Immature Gran # (Auto) (0.00-0.02) K/uL Neut # (Auto) (1.4-6.5) K/uL Lymph # (Auto) (1.2-3.4) K/uL [place] # (Auto) (0.11-0.59) K/uL Eos # (Auto) (0-0.5) K/uL Baso # (Auto) (0-0.2) K/uL Sodium 138 (136-145) mmol/L Potassium 4.0 D (3.5-5.1) mmol/L Chloride 104 (98-107) mmol/L Carbon Dioxide 29 (21-32) mmol/L Anion Gap 5.0 (3-11) BUN 9 (7-18) mg/dl Creatinine 0.53 L (0.6-1.2) mg/dl Est Cr Clr Drug Dosing 82.3 Est GFR ( Amer) 122.2 Est GFR (Non-Af Amer) 105.4 BUN/Creatinine Ratio 16.9 (10-20) Glucose 87 (70-99) mg/dl Calcium 9.3 (8.5-10.1) mg/dl Magnesium 2.1 (1.8-2.4) mg/dl Total Bilirubin 4.8 H (0.2-1) mg/dl AST 140 H (15-37) U/L ALT 320 H (12-78) U/L Alkaline Phosphatase 151 H (45-117) U/L Total Protein 6.4 (6.4-8.2) gm/dl Albumin 3.4 (3.4-5.0) gm/dl Globulin 3.0 (2.5-4.0) gm/dl Albumin/Globulin Ratio 1.1 (0.9-2) Lipase (73-393) U/L Urine Color Urine Appearance (Clear) Urine pH (4.5-7.5) Ur Specific [place] (1.000-1.030) Urine Protein (Negative) Urine Glucose (UA) (Negative) Urine Ketones (Negative) Urine Blood (Negative) Urine Nitrite (Negative) Urine Bilirubin (Negative) Urine Urobilinogen (Negative) Ur Leukocyte Esterase (Negative) Hepatitis A IgM Ab Pending Hep Bs Antigen (Neg) Hep B Core IgM Ab Pending Hepatitis C Antibody (Neg) 04/04/19 04/04/19 04/04/19 Range/Units 17:27 17:27 17:27 WBC 4.80 (4.8-10.8) K/uL RBC 4.45 (4.2-5.4) M/uL Hgb 13.6 (12.0-16.0) g/dL Hct 41.5 (37-47) % MCV 93.3 (80-100) fL MCH 30.6 (25-34) pg MCHC 32.8 (32-36) g/dL RDW Std Deviation 46.4 H (36.4-46.3) fL RDW Coeff of Ayan 13.6 (11.5-14.5) % Plt Count 262 (130-400) K/uL MPV 9.5 (7.4-10.4) fL Immature Gran % (Auto) 0.4 % Neut % (Auto) 53.3 % Lymph % (Auto) 30.2 % [place] % (Auto) 11.3 % Eos % (Auto) 4.0 % Baso % (Auto) 0.8 % Immature Gran # (Auto) 0.02 (0.00-0.02) K/uL Neut # (Auto) 2.56 (1.4-6.5) K/uL Lymph # (Auto) 1.45 (1.2-3.4) K/uL [place] # (Auto) 0.54 (0.11-0.59) K/uL Eos # (Auto) 0.19 (0-0.5) K/uL Baso # (Auto) 0.04 (0-0.2) K/uL Sodium 137 (136-145) mmol/L Potassium 3.3 L (3.5-5.1) mmol/L Chloride 102 (98-107) mmol/L Carbon Dioxide 29 (21-32) mmol/L Anion Gap 6.0 (3-11) BUN 12 (7-18) mg/dl Creatinine 0.69 (0.6-1.2) mg/dl Est Cr Clr Drug Dosing Not Reportable Est GFR ( Amer) 112.0 Est GFR (Non-Af Amer) 96.6 BUN/Creatinine Ratio 17.1 (10-20) Glucose 106 H (70-99) mg/dl Calcium 9.0 (8.5-10.1) mg/dl Magnesium (1.8-2.4) mg/dl Total Bilirubin 5.0 H (0.2-1) mg/dl AST 156 H (15-37) U/L ALT 346 H (12-78) U/L Alkaline Phosphatase 149 H (45-117) U/L Total Protein 6.7 (6.4-8.2) gm/dl Albumin 3.5 (3.4-5.0) gm/dl Globulin 3.2 (2.5-4.0) gm/dl Albumin/Globulin Ratio 1.1 (0.9-2) Lipase 152 (73-393) U/L Urine Color Urine Appearance (Clear) Urine pH (4.5-7.5) Ur Specific [place] (1.000-1.030) Urine Protein (Negative) Urine Glucose (UA) (Negative) Urine Ketones (Negative) Urine Blood (Negative) Urine Nitrite (Negative) Urine Bilirubin (Negative) Urine Urobilinogen (Negative) Ur Leukocyte Esterase (Negative) Hepatitis A IgM Ab Hep Bs Antigen Neg (Neg) Hep B Core IgM Ab Hepatitis C Antibody Neg (Neg) 04/04/19 Range/Units 13:55 WBC (4.8-10.8) K/uL RBC (4.2-5.4) M/uL Hgb (12.0-16.0) g/dL Hct (37-47) % MCV (80-100) fL MCH (25-34) pg MCHC (32-36) g/dL RDW Std Deviation (36.4-46.3) fL RDW Coeff of Ayan (11.5-14.5) % Plt Count (130-400) K/uL MPV (7.4-10.4) fL Immature Gran % (Auto) % Neut % (Auto) % Lymph % (Auto) % [place] % (Auto) % Eos % (Auto) % Baso % (Auto) % Immature Gran # (Auto) (0.00-0.02) K/uL Neut # (Auto) (1.4-6.5) K/uL Lymph # (Auto) (1.2-3.4) K/uL [place] # (Auto) (0.11-0.59) K/uL Eos # (Auto) (0-0.5) K/uL Baso # (Auto) (0-0.2) K/uL Sodium (136-145) mmol/L Potassium (3.5-5.1) mmol/L Chloride (98-107) mmol/L Carbon Dioxide (21-32) mmol/L Anion Gap (3-11) BUN (7-18) mg/dl Creatinine (0.6-1.2) mg/dl Est Cr Clr Drug Dosing Est GFR ( Amer) Est GFR (Non-Af Amer) BUN/Creatinine Ratio (10-20) Glucose (70-99) mg/dl Calcium (8.5-10.1) mg/dl Magnesium (1.8-2.4) mg/dl Total Bilirubin (0.2-1) mg/dl AST (15-37) U/L ALT (12-78) U/L Alkaline Phosphatase (45-117) U/L Total Protein (6.4-8.2) gm/dl Albumin (3.4-5.0) gm/dl Globulin (2.5-4.0) gm/dl Albumin/Globulin Ratio (0.9-2) Lipase (73-393) U/L Urine Color Dark Yellow Urine Appearance Clear (Clear) Urine pH 7.5 (4.5-7.5) Ur Specific [place] > 1.045 H (1.000-1.030) Urine Protein Negative (Negative) Urine Glucose (UA) Negative (Negative) Urine Ketones Negative (Negative) Urine Blood Negative (Negative) Urine Nitrite Negative (Negative) Urine Bilirubin 2+ H (Negative) Urine Urobilinogen Negative (Negative) Ur Leukocyte Esterase Negative (Negative) Hepatitis A IgM Ab Hep Bs Antigen (Neg) Hep B Core IgM Ab Hepatitis C Antibody (Neg)
[2019-04-05] MEDS: LACTATED RINGER'S 1,000 ML IV SCH (14:06)
--- NOTE | 2019-04-05 16:42 | Hospitalist Progress Note ---
Date of Service April 05, 2019 Assessment & Plan (1) Abdominal pain: (2) Transaminitis: Present on admission with LLQ abdominal pain associated with nausea Liver enzymes on admission with AST 156, ALT 346, ALK 149 CT abd/pelvis showed no other evidence of acute intra-abdominal pathology allowing for nonvisualization of the appendix. Stool burden could suggest constipation. MRCP was unremarkable Liver enzymes slightly trending down with AST 140, ALT 320 and ALK 151 Gastro on board MAYELIN, AMA, ASMA pending HCV and HBV ag negative Will start on full liquid diet Will hold laxative since pt had3 BM ( 2 solid and last one watery) Continue monitor LFT Hypokalemia K stable monitor BMP DVT px SCDs/ ambulate CODE STATUS FULL CODE Subjective Pt was seen and examined Lying in bed with no distress Pt said that she feels much better She said that pain slightly improves She said that she had 3 BM ( 2 solid stools, but last bm was watery) She denies any nausea, dizziness, nausea and vomiting Physical Exam Physical Exam: General- No acute distress Head- atraumatic Eyes- PERRL, EOMI, ENT- oropharynx clear Neck- supple, no JVD Lungs- clear to auscultation Heart- regular rhythm; no murmur Abdomen- normal bowel sounds, soft, +tender with palpation Extremities- no calf tenderness Neuro- alert, oriented x 3; PERRL, EOMI; no facial palsy; no dysarthria Skin- warm & dry Results & Data Vital Signs (Past 12 Hours) Vital Signs Temp Pulse Resp BP BP Pulse Ox 04/05/19 15:58 36.8 C 67 18 100/62 95 04/05/19 07:19 36.8 C 63 16 111/70 97
[2019-04-06] MEDS: LACTATED RINGER'S 1,000 ML IV SCH (01:58)
[2019-04-06 06:13] LABS: Platelet Count 247 K/uL (130-400)
[2019-04-06 06:21] LABS: INR 0.9 (0.9-1.1); Prothrombin Time 9.3 Seconds (9.0-12.0)
[2019-04-06 06:47] LABS: Bilirubin Direct 3.4 mg/dl (0-0.2); Calcium 8.7 mg/dl (8.5-10.1); Creatinine Clr Calc Pharmacy 83.9 ml/min; Est GFR (African American) 122.9; Est GFR (Non-African American) 106.1; Potassium 4.1 mmol/L (3.5-5.1)
[2019-04-06 06:50] LABS: Bilirubin,Total 4.4 mg/dl (0.2-1)
--- NOTE | 2019-04-06 08:31 | Gastroenterology Progress Note ---
Date of Service April 06, 2019 Assessment & Plan (1) Transaminitis: 58 year old female undergoing oupatient GI work up for abdominal pain, GERD, change in bowel habits and new weight loss of 12 lbs s/p chest XR, transvaginal US, contrast enhanced CT which was unremarkble. She had EGD/Colon w/ Dr. 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 She has had persistent migratory abdominal pain, noted to be jaundiced in clinical yesterday which prompted ED evaluation given uncontrolled abdominal pain. Only new medication is Xifaxan, no ETOH use, no tylenol use. She does use numerous unspecified supplements which she will have her bring in so we can review. DDX discussed to include viral etiology, medication induced, biliary source although negative MR Abd improving w/ bowel regimen. Her LFTs remain elevated. Supplement list reviewed. Pt would like to go home - MRCP negative - Acute hep panel sent - MAYELIN, AMA, ASMA added - Consider trial of Bentyl - Continue Omeprazole - Can use Pepcid 10 mg daily in addition PRN - Start a bowel regimen - Colace 100 mg twice daily - Miralax 1 capful twice daily - Current medication list reviewed - Supplements reviewed - Vit-A could potentially cause elevated LFTs in higher doses. Would D/C - Zafirlukast: The pattern of liver enzyme elevation is usually hepatocellular and resembles acute viral hepatitis The onset of symptoms of liver injury is typically within 2 to 6 months of starting therapy, but cases with longer latency periods have been reported (8-13 months). - Xifaxan: there is little evidence that rifaximin when given orally causes liver injury, unlikely cause of clinically apparent liver injury but agree w/ holding medication as pt has not benefited from trial - Would continue to trend LFTs, these appeared ordered in epic and would get in about 1 week time - Consider EUS w/ liver bx for any persistent elevation of LFTs Thank you for allowing us to participate in the care of this patient. Please call with any acute changes, questions or concerns. Please see addendum below with additional recommendation from my supervising physician. Supervising Physician Co-Signing Physician Notes I have seen and discussed the management with SAMMIE Fitzgerald. 58 yo fm admitted with abdominal pain, found to have transaminitis and mild elevation in bili/alk phos. Negative workup for gallstones. Clinical history c/w recent use of herbal supplements (she changes her story as to when the last use of it was and how long she was taking it for). She is convinced her elevated lft's are from Xifaxan that was prescribed to her by Dr. Huerta in the office. She is alert and oriented, without visible signs of distress, fully dressed with her bags nearly packed, at bedside Labs reviewed- downtrending lft's aih/ama serologies pending Herbal supplements reviewed however no dosing noted. Diff - dili from xifaxan (this is rarely reported in hepatology literature as this is used commonly in liver patients). There is a mention on the xifaxan website that there can be an increase in lft's that the patient read and is certain is the cause so she will not be taking xifaxan. It was also discussed that high levels of vitamin a can also cause lft elevation and to be mindful of that in her usage of herbal supplements. She expressed understanding. Lft's in one week as an outpatient- further fup with her prior clinic providers at [facility] in 2-4 weeks. GI will sign off. Her was present in the room when seen by myself today as was her daughter yesterday. Subjective Pt was seen and evaluated, chart reviewed No family at bedside No acute events noted overnight Suggests she moves copious amounts of stool yesterday Started semi-formed yesterday, now looser No black or bloody stools Abd pain that prompted ED visit did resolve Family was able to bring in list of supplements - started 6 weeks, stopped 2 weeks ago Vit C Deven-Mag Probiotic Phosphatidylserine Fish Oil Vit A L arginine Multivit Tribulus extract Berberine Bearberry Black walnut Barberry New meds: xifaxan Tylenol: none ETOH: none Supplements: many, names unknown. will bring a list TB 0.3 --> 4.9 --> 5 --> 4.4 AST 20 --> 174 --> 156 --> 138 ALT 19 --> 353 --> 245 --> 281 ALKP 53 --> 144 --> 149 --> 142 Lipase 43 --> 152 MRCP: The gallbladder is normal in appearance. No gallstones are identified. There is no intra or extrahepatic biliary ductal dilatation. The common bile duct is normal in caliber and measures up to 3 mm in diameter. There are no filling defects to suggest choledocholithiasis. The pancreatic duct is normal in caliber. Scattered hepatic cysts measure up to 1 cm. The unenhanced liver is otherwise grossly unremarkable. The unenhanced spleen, pancreas, adrenal glands, and kidneys are grossly normal. CT ABD/Pelvis: Possible wall thickening of the gastric antrum and periportal or region could represent gastritis. No other evidence of acute intra-abdominal pathology allowing for nonvisualization of the appendix. Stool burden could suggest constipation. Fibroid uterus including an enhancing submucosal fibroid. Chest XR: No acute process of the chest Tranvaginal US: Fibroid uterus. CT ABD/Pelvis: No acute abnormality identified in the abdomen or pelvis. No bowel obstruction. Lobular structure centrally in the pelvis containing multifocal rounded hypodense foci, suggesting a fibroid uterus, as above. Consider further evaluation with pelvic ultrasound. Colonoscopy: Normal mucosa in the entire examined colon to the terminalileum. Biopsied. Fluid aspiration performed EGD: Normal upper third of esophagus, middle third of esophagus and lower third of esophagus. Z-line slightly irregular, 39 cm from the incisors. Small sliding hiatal hernia.Multiple gastric polyps. Normal mucosa was found in the entire stomach. Normal examined duodenum. Squamo-columnar junction mucosa with pancreatic acinar metaplasia, negative for intestinal metaplasia and dysplasia Review of Systems Constitutional: no fever and no chills Respiratory: no cough and no dyspnea Cardiovascular: no chest pain Gastrointestinal: no abdominal pain, no coffee ground emesis, no hematemesis, no change in bowel habits, no blood in stools and no melena Physical Exam Constitutional: WD/WN, vitals as above Neck: trachea midline Respiratory: normal respiratory effort, lungs clear to auscultation Cardiovascular: Rate/Rhythm: regular rate and regular rhythm Gastrointestinal (Abdomen): Inspection/Auscultation: abdomen normal to inspection Percussion/Palpation: abdomen soft; abdomen nontender, no guarding and abdomen not rigid Skin: + jaundice Results & Data Vital Signs (Past 12 Hours) Vital Signs Temp Pulse Resp BP Pulse Ox 04/06/19 07:14 36.8 C 72 16 105/60 95 04/05/19 23:36 36.7 C 61 20 100/55 L 96
[2019-04-06] MEDS: FLUTICASONE/SALMETEROL 250/50 (ADVAIR) 14 PUFF/1 INHALER INH SCH (09:12)
[2019-04-06] MEDS: PANTOprazole 40 MG TAB PO SCH (11:43)
[2019-04-06] MEDS: LACTOBACILLUS ACIDOPHILUS (FLORANEX) TAB PO SCH (11:43)
--- NOTE | 2019-04-06 13:18 | Hospitalist Progress Note ---
Date of Service April 06, 2019 Assessment & Plan (1) Abdominal pain: (2) Transaminitis: Present on admission with LLQ abdominal pain associated with nausea Liver enzymes on admission with AST 156, ALT 346, ALK 149 CT abd/pelvis showed no other evidence of acute intra-abdominal pathology allowing for nonvisualization of the appendix. Stool burden could suggest constipation. MRCP was unremarkable Liver enzymes slightly trending down with AST 140, ALT 320 and ALK 151 Gastro on board MAYELIN, AMA, ASMA, .. pending HCV and HBV ag negative Tolerated diet Follow up with Gastro outpatient Check LFT in 1 week Hypokalemia K stable monitor BMP DVT px SCDs/ ambulate CODE STATUS FULL CODE Disposition Will discharge home today Subjective Pt was seen and examined Lying in bed with no distress Pt said that she feels ok She tolerated diet Denies any chest pain, palpitation, dizziness and SOB Physical Exam Physical Exam: General- No acute distress Head- atraumatic Eyes- PERRL, EOMI, ENT- oropharynx clear Neck- supple, no JVD Lungs- clear to auscultation Heart- regular rhythm; no murmur Abdomen- normal bowel sounds, soft, +tender with palpation Extremities- no calf tenderness Neuro- alert, oriented x 3; PERRL, EOMI; no facial palsy; no dysarthria Skin- warm & dry Results & Data Vital Signs (Past 12 Hours) Vital Signs Temp Pulse Pulse Resp BP BP Pulse Ox 04/06/19 13:03 36.8 C 65 72 16 105/60 100/62 95 04/06/19 07:14 36.8 C 72 16 105/60 95
[2019-04-06 13:31] LABS: Hepatitis A Antibody IgM NON-REACTIVE (NON-REACTIVE); Hepatitis B Core Antibody IgM NON-REACTIVE (NON-REACTIVE)
--- NOTE | 2019-04-07 23:13 | Discharge Summary ---
Date of Service April 06, 2019 Admission HPI Per Admitting Provider 58-year-old female who presents to the ED with abdominal pain. Patient has been having ongoing GI issues for the past several months. She reports initially she had symptoms of bloating and gas. She also has had progressive weight loss. Over the summer, patient underwent EGD and colonoscopy that were unremarkable. 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 She was seen in the GI clinic today for complaints of constipation and light-colored stools. Patient was instructed to do a bowel cleanse with MiraLAX and Dulcolax. Labs were also obtained that demonstrated a transaminitis. Per outpatient GI note, it is suspected that this is from Xifaxan use. Patient reports that after she started the clients today, she developed left lower quadrant abdominal pain. She reports she has had minimal bowel movement since doing a cleanse. She has had nausea but denies any vomiting. No fevers or chills. Denies chest pain or shortness of breath. No lightheadedness, dizziness, diaphoresis, syncopal events. She denies urinary symptoms. Of note, patient has been seeing a clinical nutritionist to help her gain some weight. She was started on supplements about 1-1/2 months ago however stopped them about 2 weeks ago due to difficulty swallowing the pills. She is unsure of what all the supplements were in the list is at home. In the ED, labs demonstrate a transaminitis. CT ABD/pelvis is showing signs of gastritis and constipation. Patient is hemodynamically stable. She was given IV famotidine, IV Dilaudid, IV Zofran. Admission Exam Per Admitting Provider Constitutional: + thin; no acute distress Vitals as noted Eyes: + scleral abnormality (icteric sclerae) and PERRL; no conjunctival abnormality ENMT: external ear and nose normal, oropharynx normal Respiratory: normal respiratory effort, lungs clear to auscultation Cardiovascular: regular rate and regular rhythm Vessels: normal peripheral pulses Extremities: no edema Gastrointestinal: normal bowel sounds Percussion/Palpation: + abdomen tender (Left lower quadrant) and abdomen soft; no hepatosplenomegaly Musculoskeletal: no cyanosis or clubbing, extremities motor strength 5/5 Skin: no rashes, warm and dry Neurologic: PERRL, EOMI, accommodation nl, no face palsy, no dysarthria Psychiatric: A+Ox3, euthymic affect Principal Diagnosis Transaminitis Hypokalemia Discharge Exam General- No acute distress Head- atraumatic Eyes- PERRL, EOMI, ENT- oropharynx clear Neck- supple, no JVD Lungs- clear to auscultation Heart- regular rhythm; no murmur Abdomen- normal bowel sounds, soft, +tender with palpation Extremities- no calf tenderness Neuro- alert, oriented x 3; PERRL, EOMI; no facial palsy; no dysarthria Skin- warm & dry Discharge Data Allergies Allergy/AdvReac Type Severity Reaction Status Date / Time levofloxacin [From Levaquin] Allergy Unknown Unknown Verified 04/04/19 18:07 Penicillins Allergy Unknown Unknown Verified 04/04/19 18:07 Consultations 04/04/19 20:58 ED Decision to Admit Stat 04/04/19 23:30 Consult Gastroenterology Routine Ordered Studies 04/04/19 17:19 CT abd pelvis oral and IV con Stat 04/05/19 01:07 MR MRCP Routine MRCP CLINICAL HISTORY: Generalized abdominal pain. COMPARISON STUDY: Abdominal CT dated 04/04/2019. TECHNIQUE: Abdominal MRCP is performed utilizing various T2-weighted sequences in the axial and coronal planes. IV contrast was not administered for this examination. 3-D reformats are created and assessed. FINDINGS: The gallbladder is normal in appearance. No gallstones are identified. There is no intra or extrahepatic biliary ductal dilatation. The common bile duct is normal in caliber and measures up to 3 mm in diameter. There are no filling defects to suggest choledocholithiasis. The pancreatic duct is normal in caliber . Scattered hepatic cysts measure up to 1 cm. The unenhanced liver is otherwise grossly unremarkable. The unenhanced spleen, pancreas, adrenal glands, and kidneys are grossly normal. There is no bowel obstruction. The abdominal aorta is normal in caliber. No abdominal ascites is identified. There is no evidence of adenopathy. No pleural effusion is seen. The bony structures are intact as visualized. IMPRESSION: Normal MRCP. Electronically signed by: Sixto Munson M.D. 04/05/2019 7:50 AM Dictated: 04/05/19744 Transcribed: 04/05/19744 CT abd pelvis oral and IV con CLINICAL HISTORY: 58 years-old Female presenting with upper abd pain, elevated LFTs, quick prep. TECHNIQUE: Multidetector CT of the abdomen and pelvis was performed after the administration of oral and intravenous contrast. IV contrast: 94 mL of Optiray 320. One or more dose lowering techniques were used consistent with the principles of ALARA (as low as reasonably achievable), including automatic exposure control, mA or kV adjustment to individual patient size, and/or use of iterative reconstruction. COMPARISON: None. CT DOSE (mGy.cm): The estimated cumulative dose is 254.65 mGy.cm. FINDINGS: Fixture Builder topogram: Unremarkable. Lung bases: Normal heart size. No pericardial or pleural effusion. Minimal dependent changes likely atelectasis. Liver: Normal morphology. Well-defined hypodense lesions likely hepatic cysts. Patent hepatic vasculature. Biliary: No intrahepatic or extrahepatic biliary ductal dilatation. Normal gallbladder. Pancreas: Normal. Spleen: Normal. Adrenal glands: Normal. Kidneys and ureters: Normal. No hydronephrosis. Bladder: The configuration of the bladder suggests pelvic ligamentous laxity. Bladder otherwise normal. Pelvic organs: Multiple degenerated fibroids as well as viable enhancing fibroids noted including a submucosal Bible fibroid in the endometrial cavity. Ovaries normal. Bowel: Moderate stool burden throughout normal caliber colon, which is predominantly left-sided. The appendix is now well visualized. No bowel obstruction. Wall thickening of the gastric antrum and peripyloric region to a mild degree. No small bowel wall thickening is appreciated. Peritoneal cavity: Trace free fluid in the pelvis. No free intraperitoneal gas. Lymph nodes: No enlarged lymph nodes in the abdomen or pelvis. Vasculature: Aorta and IVC patent and normal in caliber. Abdominal wall: Normal. Musculoskeletal: Normal. IMPRESSION: 1. Possible wall thickening of the gastric antrum and periportal or region could represent gastritis. 2. No other evidence of acute intra-abdominal pathology allowing for nonvisualization of the appendix. 3. Stool burden could suggest constipation. 4. Fibroid uterus including an enhancing submucosal fibroid. Electronically signed by: Shay Lombardi M.D. 04/04/2019 6:22 PM Dictated: 04/04/191814 Transcribed: 04/04/191814 Hospital Course (1) Abdominal pain: (2) Transaminitis: Present on admission with LLQ abdominal pain associated with nausea Liver enzymes on admission with AST 156, ALT 346, ALK 149 CT abd/pelvis showed no other evidence of acute intra-abdominal pathology allowing for nonvisualization of the appendix. Stool burden could suggest constipation. MRCP was unremarkable Liver enzymes slightly trending down with AST 140, ALT 320 and ALK 151 Gastro on board MAYELIN, AMA, ASMA, .. pending HCV and HBV ag negative Tolerated diet Follow up with Gastro outpatient Check LFT in 1 week Hypokalemia K stable monitor BMP DVT px SCDs/ ambulate CODE STATUS FULL CODE Disposition Will discharge home today Total Time Total Time Spent Total Time Spent (In Minutes): 35 minutes Total Time Includes: Examination of the Patient, Discharge Planning, Medication Reconciliation, Communication With Other Providers and Other Discharge Plan Discharge Items Patient Disposition: Home - Self-Care Reason For Visit: ABD PAIN, ABN LFTS Discharge Diagnosis: Transaminitis Hypokalemia Activity: Resume your previous activity Activity Comment: as tolerated Non-emergency contact: Primary Care Provider and Gut Cleaner Call non-emergency contact if: you have any medication questions Follow-up/Referrals: Nabeel Gilmore MD [Primary Care Provider] - Diet: Regular Addtl Attending Provider Instructions: Follow up with primary care provider Dr. Gilmore on 04/13 @ 11:45 AM Follow up with gastro Dr. Huerta on 04/23 @ 9:05 AM Check Liver enzymes in 1 week Avoid any medication that can damage your liver such as tylenol (and no alcohol intake) Discontinue any vitamin A supplement lab order for Liver work up pending (Gut Cleaner or your PCP will discuss result with you) Pending Studies at Discharge: Yes Studies:: MAYELIN, AMA, ASMA Stand-Alone Forms: Call Back Authorization, [facility] Medications and DC Order Prescriptions: New sennosides-docusate sodium [Senokot-S] 8.6-50 mg Tablet 1 tab PO QAM PRN (Reason: constipation) 30 Days Qty: 30 RF: 0 Continued zafirlukast 20 mg tablet 20 mg PO Q12H Qty: 180 RF: 3 Advair HFA 115-21 mcg/actuation HFA aerosol inhaler 2 puffs INH BID Qty: 36 RF: 3 omeprazole 20 mg tablet,delayed release (DR/EC) 20 mg PO QAM RF: 0 albuterol sulfate [Ventolin HFA] 90 mcg/actuation HFA aerosol inhaler 2 puffs INH .Q4-6HRS PRN (Reason: Cough or Wheezing) RF: 0 Probiotic 3 billion cell Capsule 1 cell PO DAILY RF: 0 Discontinued Xifaxan 550 mg tablet 550 mg PO TID RF: 0 Discharge Orders: Discharge Order (Routine); Ordered 04/06/19 Ordered By: Kassi Perez Admission Data Admit Date/Time: 04/04/19 22:17 Attending Provider: Kassi Perez Admit Provider: Erik Beltran Primary Care Provider: Nabeel Gilmore Other Providers: Erik Beltran ; Romna Garcia Other Interventions: Discharge Summary Assessment (RN) Last Done: 04/06/19 13:03 DC Date/Time DO NOT enter until pt leaves facility: 04/06/19 14:38
[2019-04-10 10:37] LABS: Anti Nuclear Antibody Screen NEGATIVE (NEGATIVE); CMV IgG Antibody <0.60 U/ML; CMV IgM Antibody <30.00 Au/mL
== END 2019-04-06 14:38 | disposition home or self-care (01) | DRG 948 ==
LOC: ED 16:49 → 4W 22:17